=== PATIENT | female | born 1975 | race Caucasian/White ===

== ENCOUNTER 2020-01-05 | Emergency (ER) | payer MEDICARE ==
[2020-01-05] MEDS ORDERED: ASPIRIN81 MG PO (11:02)
[2020-01-05] MEDS ORDERED: SUCRALFATE1 GM PO (11:03)
[2020-01-05] MEDS ORDERED: TRAZODONE50 MG PO (11:03)
[2020-01-05] MEDS ORDERED: PROTONIX40 M2 PO (11:04)
[2020-01-05] MEDS ORDERED: K-TAB20 MEQ PO (11:04)
[2020-01-05] MEDS ORDERED: MEDDOSEPAK PO (11:41)
[2020-01-05] MEDS ORDERED: KEFLEX500 M1 PO (11:41)
== END 2020-01-05 12:05 | disposition home or self-care (01) ==
DX: L25.9 Unspecified contact dermatitis, unspecified cause (principal); L01.00 Impetigo, unspecified

== ENCOUNTER 2022-02-06 08:18 | Observation (INO) | payer MEDICARE ==
[~2022-02-06] VITALS: Ht 154.9 cm; Wt 76.0 kg
[2022-02-06] VITALS (42 sets, daily range): BP systolic 100–142; BP diastolic 54–77
[~2022-02-06 08:18] MED LIST: ASPIRIN81 MG PO; K-TAB20 MEQ PO; KEFLEX500 M1 PO; MEDDOSEPAK PO; PROTONIX40 M2 PO; SUCRALFATE1 GM PO; TRAZODONE50 MG PO
[2022-02-06 09:10] LABS: HEMATOCRIT 39.9 % (37.0-47.0); HEMOGLOBIN 14.1 g/dl (12.0-16.0); IMMATURE GRANULOCYTES 0.2 % (0.0-5.0); MEAN CELL VOLUME 89.3 fL CALC (80.0-100.0); MEAN CORPUSCULAR HGB 31.5 pG CALC (26.0-32.0); MEAN CORPUSCULAR HGB CONC 35.3 g/dL CAL (32.0-36.0); NEUT# 2.78 thou/uL (2.00-7.15); RED BLOOD COUNT 4.47 mill/uL (4.20-5.60); RED CELL DISTRI WIDTH 12.6 % (11.5-15.5)
[2022-02-06 09:23] LABS: ALBUMIN 4.4 g/dL (3.2-5.0); ALKALINE PHOSPHATASE 38 u/l (38-126); ANION GAP 12 (6-22 (CALC)); BILIRUBIN, TOTAL 0.9 mg/dL (0.0-1.4); BUN 24 mg/dL (7-17); BUN/CREATININE RATIO 35 (12-20 (CALC)); CARBON DIOXIDE 26 mmol/l (22-30); CHLORIDE 106 mmol/l (95-108); CREATININE 0.7 mg/dL (0.5-1.0); GFR > 60 ML/MIN (>=60 (CALC)); GFR FOR AFR.AMER. > 60 ML/MIN (>=60 (CALC)); POTASSIUM 3.5 mmol/l (3.5-5.1); SGOT/AST 21 u/l (14-36); SODIUM 141 mmol/l (137-146); TOTAL PROTEIN 8.1 g/dL (6.3-8.2)
[2022-02-07 00:31] VITALS: BP 105/61
[2022-02-07 05:00] VITALS: BP 130/68
[2022-02-07 05:31] LABS: HEMOGLOBIN 13.7 g/dl (12.0-16.0); IMMATURE GRANULOCYTES 0.1 % (0.0-5.0); MEAN CELL VOLUME 90.7 fL CALC (80.0-100.0); MEAN CORPUSCULAR HGB 31.9 pG CALC (26.0-32.0); MEAN CORPUSCULAR HGB CONC 35.1 g/dL CAL (32.0-36.0); NEUT# 3.34 thou/uL (2.00-7.15); RED BLOOD COUNT 4.3 mill/uL (4.20-5.60); RED CELL DISTRI WIDTH 12.8 % (11.5-15.5)
[2022-02-07 05:44] LABS: ANION GAP 13 (6-22 (CALC)); BUN 24 mg/dL (7-17); BUN/CREATININE RATIO 30 (12-20 (CALC)); CARBON DIOXIDE 27 mmol/l (22-30); CHLORIDE 102 mmol/l (95-108); CREATININE 0.8 mg/dL (0.5-1.0); GFR > 60 ML/MIN (>=60 (CALC)); GFR FOR AFR.AMER. > 60 ML/MIN (>=60 (CALC)); POTASSIUM 3.6 mmol/l (3.5-5.1); SODIUM 140 mmol/l (137-146)
== END 2022-02-07 11:44 | disposition home or self-care (01) ==
LOC: ED 08:18 → ED-I 10:40 → ED 11:05 → ED-I 11:06 → ICU 11:06
PROVIDERS: Family Medicine; ADMIT Internal Medicine; ATTEND Internal Medicine
DX: R07.89 Other chest pain (principal); K21.9 Gastro-esophageal reflux disease without esophagitis; S06.9X0S Unspecified intracranial injury without loss of consciousness, sequela; F06.8 Other specified mental disorders due to known physiological condition; X58.XXXS Exposure to other specified factors, sequela; Z20.822 Contact with and (suspected) exposure to COVID-19